=== PATIENT | female | born 1990 | race Caucasian/White ===

== ENCOUNTER 2024-07-27 16:45 | Emergency (ER) | payer OTHER ==
[~2024-07-27] VITALS: Ht 160 cm; Wt 65.0 kg
[2024-07-27 17:10] VITALS: BP 164/98; RESP 18; TEMP 98; O2SAT 100
[2024-07-27 19:13] VITALS: PULSE 81; O2SAT 100
== END 2024-07-27 19:59 | disposition left against medical advice (07) ==
LOC: ER 16:45
DX: N89.9 Noninflammatory disorder of vagina, unspecified (principal); I10 Essential (primary) hypertension; Z53.21 Procedure and treatment not carried out due to patient leaving prior to being seen by health care provider
CPT/HCPCS: 99281